=== PATIENT | male | born 1985 | race Caucasian/White ===

== ENCOUNTER 2024-11-14 15:10 | Emergency (ER) | payer OTHER ==
[~2024-11-14] VITALS: Ht 182.9 cm; Wt 122.1 kg
[2024-11-14] MEDS: ondansetron/PF 4mg/2ml inj IV ONE (15:50)
[2024-11-14] MEDS: HYDROmorphone 1 mg/ml syringe IV ONE (15:51)
[2024-11-14] MEDS ORDERED: OXYC-138 PO (16:12)
[2024-11-14 16:38] VITALS: TEMP 98.6
[2024-11-14] MEDS: oxyCODONE/APAP 10/325mg tablet PO ONE (16:49)
[2024-11-14] MEDS: ketorolac trometh 15mg/ml vial 15 MG/ML ML IV ONE (17:12)
[2024-11-14 17:20] VITALS: BP 128/77; PULSE 71; RESP 15; O2SAT 99
== END 2024-11-14 17:18 | disposition home or self-care (01) ==
LOC: ER 15:11
DX: S32.028A Other fracture of second lumbar vertebra, initial encounter for closed fracture (principal); S32.020A Wedge compression fracture of second lumbar vertebra, initial encounter for closed fracture; Z88.0 Allergy status to penicillin; Z72.89 Other problems related to lifestyle; W11.XXXA Fall on and from ladder, initial encounter; Y93.01 Activity, walking, marching and hiking; Y92.89 Other specified places as the place of occurrence of the external cause; Y99.8 Other external cause status
CPT/HCPCS: 29515; 71250; 72125; 73610; 73630; 74176; 96374; 96375; 99285; J1171; J1885; J2405; A6446

== ENCOUNTER → 2024-11-27 | Day surgery (SDC) | payer OTHER ==
[~2024-11-27] VITALS: Ht 182.9 cm; Wt 113.4 kg
[~2024-11-27] MED LIST: BUPIVAcaine 2.5mg/ml inj 50ml vial (contains preservative) ONE; OXYC1TAB17 PO; ceFAZolin 2gm in dextrose, iso 50 ML IV ONE; clindamycin 600mg/D5W 50ml 50 ML IV ONE; famotidine 20mg tablet PO ONE; ringers solution, lacted 1,000 ML IV SCH
[2024-11-27 16:11] LABS: BASOPHILS % (AUTO) 0.2 % (0-1); EOSINOPHILS # (AUTO) 0.3 X10'3 (0-0.9); EOSINOPHILS % (AUTO) 3.8 % (0-6); LYMPHOCYTES # (AUTO) 1.8 X10'3 (1.1-4.8); LYMPHOCYTES % (AUTO) 23.6 % (21-51); MEAN CORPUSCULAR HEMOGLOBIN 28.5 PG (27.0-31.0); MEAN CORPUSCULAR HGB CONC 35.3 g/dL (33.0-36.5); MEAN CORPUSCULAR VOLUME 80.8 FL (78-98); MEAN PLATELET VOLUME 6.6 FL (7.4-10.4); MONOCYTES # (AUTO) 0.5 X10'3 (0-0.9); MONOCYTES % (AUTO) 6.7 % (2-12); NEUTROPHILS # (AUTO) 4.9 X10'3 (1.8-7.7); NEUTROPHILS % (AUTO) 65.7 % (42-75); PRE OP HEMATOCRIT 44.1 % (42.0-52.0); PRE OP HEMOGLOBIN 15.6 g/dL (14.0-17.9); PRE OP PLATELET COUNT 297 X10'3 (140-440); PRE OP WHITE BLOOD COUNT 7.5 10'3 (4.8-10.8); RED BLOOD COUNT 5.46 X10'6 (4.70-6.10); RED CELL DISTRIBUTION WIDTH 13.3 % (11.5-14.5)
[2024-11-27 16:21] LABS: ALBUMIN 3.7 G/DL (3.4-5.0); ALKALINE PHOSPHATASE 95 IU/L (46-116); BLOOD UREA NITROGEN 15 MG/DL (7-18); CALCIUM 8.9 MG/DL (8.5-10.1); CHLORIDE 104 MMOL/L (99-107); CREATININE 0.79 MG/DL (0.60-1.10); PRE OP ALT 47 U/L (30-65); PRE OP ANION GAP 8 (8-16); PRE OP AST 16 U/L (10-37); PRE OP BILIRUB, TOTAL 0.6 MG/DL (0.0-1.0); PRE OP GLUCOSE 90 MG/DL (70-104); PRE OP POTASSIUM 3.9 MMOL/L (3.4-5.1); PRE OP SODIUM 137 MMOL/L (135-145); TOTAL CARBON DIOXIDE 25.1 MMOL/L (24-32); TOTAL PROTEIN 7.4 G/DL (6.4-8.2); eCRCL 138 ML/MIN; eGFR > 90 ML/MIN
== END | disposition home or self-care (01) ==
LOC: PRE-OP 15:31
PROVIDERS: ATTEND Orthopaedic Surgery
DX: S82.52XA Displaced fracture of medial malleolus of left tibia, initial encounter for closed fracture (principal); Z53.8 Procedure and treatment not carried out for other reasons; X58.XXXA Exposure to other specified factors, initial encounter; Y93.89 Activity, other specified; Y92.89 Other specified places as the place of occurrence of the external cause; Y99.8 Other external cause status; Z79.899 Other long term (current) drug therapy
CPT/HCPCS: 36415; 80053; 85025; 93005; J7120; J3490

== ENCOUNTER 2024-11-28 06:35 | Day surgery (SDC) | payer OTHER ==
[~2024-11-28] VITALS: Ht 182.9 cm; Wt 122.7 kg
[2024-11-28] VITALS (10 sets, daily range): BP systolic 116–158; BP diastolic 57–84; PULSE 59–83; RESP 10–16; TEMP 98.3; O2SAT 97–100
[~2024-11-28 06:35] MED LIST changes: -BUPIVAcaine 2.5mg/ml inj 50ml vial (contains preservative) ONE; -ceFAZolin 2gm in dextrose, iso 50 ML IV ONE; -clindamycin 600mg/D5W 50ml 50 ML IV ONE; -famotidine 20mg tablet PO ONE; -ringers solution, lacted 1,000 ML IV SCH
[2024-11-28] MEDS: clindamycin 600mg/D5W 50ml 50 ML IV ONE (07:08)
[2024-11-28] MEDS: ceFAZolin 2gm in dextrose, iso 50 ML IV ONE (07:08)
[2024-11-28] MEDS: famotidine 20mg tablet PO ONE (07:08)
[2024-11-28] MEDS: ringers solution, lacted 1,000 ML IV SCH (07:09)
[2024-11-28] MEDS ORDERED: sevoflurane 250ml liquid IH ONE (08:02)
[2024-11-28] MEDS ORDERED: fentaNYL/PF 50MCG/1 ML 2ML syringe ONE (08:09)
[2024-11-28] MEDS ORDERED: MIDAZolam 1 MG/ML 5ML VIAL ONE (08:09)
[2024-11-28] MEDS ORDERED: propofol inj 20 ML IV ONE (08:23)
[2024-11-28] MEDS ORDERED: ROPIVAcaine 0.5% (5mg/ml) 30ml vial ONE (08:34)
[2024-11-28] MEDS ORDERED: BUPIVAcaine/PF 7.5mg/ml (0.75%) 10ml vial ONE (08:34)
[2024-11-28] MEDS ORDERED: dexamethasone sod phosphate 4mg/ml inj. ONE (08:35)
[2024-11-28] MEDS ORDERED: ondansetron/PF 4mg/2ml inj ONE (08:35)
[2024-11-28] MEDS ORDERED: acetaminophen 1,000mg/100ml IV 100 ML IV ONE (08:41)
[2024-11-28] MEDS ORDERED: VANCOMYCIN/WATER FOR INJ (PEG) 1.5GM/300 ML IVPB IV ONE (08:50)
[2024-11-28] MEDS ORDERED: meperidine/PF 25mg/ml syringe IV PRN ×6 (09:05)
[2024-11-28] MEDS ORDERED: ringers solution, lacted 1,000 ML IV SCH ×2 (09:05)
[2024-11-28] MEDS ORDERED: ondansetron/PF 4mg/2ml inj IV PRN ×2 (09:05)
[2024-11-28] MEDS ORDERED: proCHLORperazine 10 MG/2 ml inj IV PRN ×2 (09:05)
[2024-11-28] MEDS ORDERED: enalaprilat 1.25mg/ml 2ml vial IV PRN ×2 (09:05)
[2024-11-28] MEDS ORDERED: labetalol 20mg/4ml (5mg/ml) syringe IV PRN ×2 (09:05)
[2024-11-28] MEDS ORDERED: morphine 2 MG/ML inj. syringe IV PRN ×2 (09:05)
[2024-11-28] MEDS ORDERED: morphine 4 MG/ML inj SYRINge IV PRN (09:05)
--- NOTE | 2024-11-28 09:09 | ANESTHESIA RECORDS ---
Nerve Block Providers to CC ~ Diagnosis: Nerve Block requested by: ANSELMO KING MD Neuraxial/Peripheral Nerve Block requested for Post-operative analgesia by Physician above DIAGNOSIS: Post-operative pain. (Body Area) Shoulder: [ ] Arm: [ ] Hand: [ ] Hip: [ ] Knee: [ ] Ankle: [ ] Foot: [ ] Leg: [ ] Abdomen: [ ] Other: [ ] Post-operative pain expected to be/is inadequately managed by oral or IV medicines. Regional anesthetic expected to facilitate rehabilitation and/or discharge from facility. Other:[ ] Procedure Performed: Popliteal Lateral: Left Time out Done?: Yes Time of Time out: 08:10 Procedure Details: PROCEDURE DETAILS: Risks, benefits and alternatives explained Informed consent obtained, and patient wishes to proceed Conscious sedation with indicated monitors Patient positioned, pertinent anatomy defined, sterile technique used Needle used: [ ] 3 1/8 inch Stimuplex Ultra 22ga [x ] 4 inch Stimuplex Ultra 20ga [ ] 6 inch Stimuplex Ultra 20ga [ ] 6 inch, Quikbloc over the needle catheter set 20ga [ ] 4 inch Quikbloc over the needle catheter set 20ga [ ]Other: [ ] Loss of twitch @ [ 0.6 ]mA [ x] Single Injection [ ] Catheter Ultrasound Guidance Used: [x ] Yes [ ] No Attempts:[ once ] Medicines injected: [ ]Clonidine Amt:[ ] [x ]Dexamethasone Amt:[ ] [x ]Ropivacaine Amt:[ 0.5% 30 cc ] [ x ]Bupivacaine Amt:[___0.375% 12 cc ] [ ]Lidocaine Amt:[ ] [ ]Exparel 1.33%:[ ] [ ]Epinephrine Amt[ ] [ ]Other: [ ] Intermittent aspiration during local anesthetic administration No symptoms of intraneural or intravenous injection Patient tolerated procedure well Comments Left Politeal fossa Block Pt in Rt lateral position with Left Leg flexed at 90 Degrees. Lateral approach. Ultrasound probe placed back of thigh 2 inches above the knee joint. Easy visualization of the Sciatic nerve. 1% xylocaine local anesthetic. Easy visualization of Spreading of local anesthetic anterior and posterior to the Sciatic nerve sub paraneurally inside sciatic nerve sheath. Meaningful conversation t throughout. No Pain or discomfort during injection. Lt Lateral Femoral Cut nerve of thigh blocked Lateral approach lateral to sartorius, under the inguinal ligament. 5 cc of Local anesthetic mixture injected . LANCE BLANCAS MD Nov 28, 2024 09:09
[2024-11-28] MEDS: morphine 4 MG/ML inj SYRINge IV PRN (09:57)
--- NOTE | 2024-11-28 10:07 | OPERATIVE REPORT ---
DATE OF SURGERY: 11/28/2024 DICTATING PHYSICIAN: Milo Ramirez MD PREOPERATIVE DIAGNOSIS: Left ankle fracture, medial malleolus. POSTOPERATIVE DIAGNOSIS: Left ankle fracture, medial malleolus. PROCEDURE PERFORMED: Open reduction and internal fixation, left medial malleolus. SURGEON: Milo Ramirez MD TEMPLER HEAD: No rehab assistant. ANESTHESIA: General anesthesia, Dr. Reese with an iPACK block peripheral block. ANESTHESIOLOGIST: Dr. Reese FINDINGS: The patient was found to have a nondisplaced medial malleolus fracture. COMPLICATIONS: None. IMPLANTS USED: Two 3.5 cannulated screws, partially threaded; 1 was 50 mm, 1 was 40 mm in length. BLOOD LOSS: Scant. SPECIMENS REMOVED: No specimens were removed. DESCRIPTION OF PROCEDURE: The patient was taken to the operating room after I had signed his left leg and ankle. He understood the indications, risks, benefits, potential limitations and complications of the surgery. I obtained informed consent. After having signed his left leg, he was given prophylactic intravenous antibiotics, namely clindamycin and IV vancomycin. Once in the operating room, he was given a general anesthetic with an LMA and a peripheral nerve block by anesthesiologist. The left leg was now prepped and draped in the usual sterile orthopedic fashion. Surgical timeout was taken per protocol and the case was begun. No tourniquet was used. Surgical timeout was taken. Medial malleolus was inspected. Moderate swelling was encountered. C-arm fluoroscopy was used with operative personnel being shielded with lead. Then, using the guide pins to judy the site for the medial malleolus, a transverse incision was made approximately 1 to 1-1/2 inches just distal to the medial malleolar tip. Dissection was then carried down using blunt technique to expose the tip of the medial malleolus. Guide pins were now placed under fluoroscopic guidance through the tip of the medial malleolus into the metaphyseal region of the distal tibia in a parallel fashion. X-rays were taken in a lateral, oblique and anterior-posterior angles to ensure that we were able to maintain anatomic alignment of the fracture and good positioning of the guide pins. Guide pins were now placed in one at a time leaving the second guide pin in place to minimize potential rotation of the fracture. These were now allowed to be advanced under fluoroscopic guidance to achieve good cortical compression with the screw head. The ankle was stable throughout the range of motion. After the fixation was completed, the area was then copiously irrigated and closure was accomplished with vertical mattress and/or simple sutures of 4-0 nylon. Sterile dressings were now applied. The patient was placed in a postoperative fracture boot. The patient was now extubated. The patient was now aroused after the LMA was removed. Transferred to the recovery room in stable condition. There were no apparent complications. Milo Ramirez MD TID: [id number] RECEIPT: [id number] DONAVON/MARGOT
== END 2024-11-28 10:45 | disposition home or self-care (01) ==
LOC: PAS 06:35
PROVIDERS: ATTEND Orthopaedic Surgery
DX: S82.52XA Displaced fracture of medial malleolus of left tibia, initial encounter for closed fracture (principal); X58.XXXA Exposure to other specified factors, initial encounter; Y93.89 Activity, other specified; Y92.89 Other specified places as the place of occurrence of the external cause; Y99.8 Other external cause status; Z79.899 Other long term (current) drug therapy; G89.18 Other acute postprocedural pain; Z90.49 Acquired absence of other specified parts of digestive tract; Z98.890 Other specified postprocedural states; Z87.891 Personal history of nicotine dependence; Z88.0 Allergy status to penicillin
CPT/HCPCS: 27766; 64445; 64450; 76942; 82948; C1713; J0131; J1100; J2003; J2250; J2270; J2405; J2704; J2795; J3010; J3490; J7030; J7120; L4360; Z7506; Z7508; Z7512; A4215; A4618; A6449; A7000

== ENCOUNTER 2025-05-21 15:11 | Emergency (ER) | payer OTHER, MEDICAID ==
[~2025-05-21] VITALS: Ht 182.9 cm; Wt 130.8 kg
[2025-05-21 15:19] VITALS: BP 159/93; PULSE 76; O2SAT 98
--- NOTE | 2025-05-21 15:27 | Physician Documentation ---
History of Present Illness ~ Stated Complaint: BACK PAIN Time Seen by MD: 15:25 Source: patient Mode of Arrival: POV Exam Limitations: no limitations HPI 39-year-old male with complaints of acute on chronic back pain after lifting 30 lb at work. Patient already has an open workman's comp case for his lower back pain from lifting. [facility]. Patient states that his concern was that he felt or heard a pop and then experienced paresthesia to his lower extremity that was opposite of the 1st incident. Now he has paresthesia or numbness tingling to the right foot as well as left foot. Patient denies any loss of bowel or bladder control. Medication Reconciliation Allergies: Coded Allergies: Penicillins (Verified Allergy, Unknown, THROAT SWELLING, 05/21/25) Scheduled PRN Oxycodone Hcl/Acetaminophen (Oxycodone-Acetaminophen 10-325), 1 TAB PO Q8H PRN for pain, (Reported) Past Medical History Past Medical History: No Pertinent History Past Surgical History: no surgical history Alcohol Use: Occasionally Lives In: Home Occupation: employed Review of Systems All Other Systems at this time: Reviewed and Negative Musculoskeletal: Reports: see HPI Physical Exam Physical Exam Physical Exam General: Alert, no apparent distress. HEENT: moist mucous membranes. Neck: Full range of motion. Respiratory: No respiratory distress speaking in full sentences Chest: No accessory muscle use. Cardiovascular: Appears well perfused Neurologic: Oriented x4. Psychiatric: Normal mood and affect. Skin: Normal color, warm and dry. No edema, no ecchymosis. Progress Results/Orders Results/Orders Vital Signs 05/21/25 05/21/25 05/21/25 15:19 19:23 19:32 Temp 97.8 97.8 Pulse 76 Resp 18 18 B/P (MAP) 159/93 Pulse Ox 98 O2 Flow Rate 0 Medical Decision Making Additional information obtaine: old records Findings X-ray to evaluate disc height as he is concerned due to lifting and hearing a pop. X-ray indicates old compression fracture similar comparatively to the x- rays done in the past. Patient is discharged to follow up with [facility] for further treatment and images Differential Dx:Considerations: Strain, Other Departure Time of Disposition: 17:08 Disposition: 01 HOME / SELF CARE / HOMELESS Impression: Primary Impression: Lumbar compression fracture Condition: Stable Discharge Instructions: Acute Back Pain, Adult Additional Instructions: The x-ray compared from previous images continues to show the L3 compression fracture which states is similar to appearance. Follow up with [facility] for continued treatment as well as let them know that she were here due to potential re-injury as this is workman's comp case. Monitor for any new or worsening symptoms and feel free to return to the ER DI LUMBAR SPINE LIMITED, HISTORY: Pop, previous injury COMPARISON: None TECHNICAL DATA: Frontal and lateral views were obtained of the lumbar spine . FINDINGS: There are 5 lumbar type vertebral bodies. Lumbar curvature is within normal [place] its. There is no spondylolisthesis. Similar moderate compression fracture of L3. Disk heights are unremarkable. The facet joints appear normal. The sacroiliac joints are symmetric. Paraspinal soft tissues are within normal limits. IMPRESSION: Similar moderate compression fracture of L3 from 11/14/2024 CT. Referrals: NO PRIMARY CARE PROVIDER (PCP) Education Educated: Patient Educated regarding: diagnosis, treatment, need for follow up Signature Scribe Signature: No scribe Attestation: The note accurately reflects work and decisions made by me.Nenita Grier - PHARMACY INTAKE TECHNICIAN 05/21/25 15:27 NENITA GRIER NP May 21, 2025 15:27 GWEN JEFFERSON MD May 22, 2025 06:21
--- NOTE | 2025-05-21 16:26 | RADIOLOGY REPORT ---
DI LUMBAR SPINE LIMITED, HISTORY: Pop, previous injury COMPARISON: None TECHNICAL DATA: Frontal and lateral views were obtained of the lumbar spine . FINDINGS: There are 5 lumbar type vertebral bodies. Lumbar curvature is within normal limits. There is no spondylolisthesis. Similar moderate compression fracture of L3. Disk heights are unremarkable. The facet joints appear normal. The sacroiliac joints are symmetric. Paraspinal soft tissues are within normal limits. IMPRESSION: Similar moderate compression fracture of L3 from 11/14/2024 CT.
[2025-05-21 19:23] VITALS: TEMP 97.8
[2025-05-21 19:32] VITALS: RESP 18
[2025-05-21] MEDS: ketorolac trometh 30MG/ML vial 30 MG/ML VIAL IM ONE (19:32)
== END 2025-05-21 19:37 | disposition home or self-care (01) ==
LOC: ER 15:11
DX: S32.038A Other fracture of third lumbar vertebra, initial encounter for closed fracture (principal); G89.29 Other chronic pain; Z88.0 Allergy status to penicillin; Z72.89 Other problems related to lifestyle; X58.XXXA Exposure to other specified factors, initial encounter; Y93.89 Activity, other specified; Y92.89 Other specified places as the place of occurrence of the external cause; Y99.8 Other external cause status
CPT/HCPCS: 72100; 96372; 99283; J1885